=== PATIENT | male | born 1965 | race Caucasian/White ===

== ENCOUNTER 2017-07-09 16:37 | Observation (INO) | payer OTHER ==
[2017-07-09] VITALS (9 sets, daily range): BP systolic 106–164; BP diastolic 50–73; PULSE 63–97; RESP 16–20; TEMP 97.7–98.7; O2SAT 96–98
[~2017-07-09] VITALS: Ht 180.3 cm; Wt 73.0 kg
[~2017-07-09 16:37] MED LIST: NEFA200T PO; PROT40TA PO; ZOLP10TA3 PO
[2017-07-09] MEDS ORDERED: methylPREDNISolone SOD SUCC 125 MG/2 ML VIAL IV PUSH ONE (17:15)
[2017-07-09] MEDS ORDERED: SODIUM CHLORIDE 0.9% FLUSH 10 ML FLUSH IVF PRN (17:15)
--- NOTE | 2017-07-09 17:22 | PD ---
HPI Chief Complaint: Neuro Symptoms/ Deficits Time Seen by Provider: 16:52 Travel History International Travel<30 days: No Contact w/Intl Traveler<30days: No Traveled to known affect area: No History of Present Illness HPI Patient is a 51-year-old male with history of cervical spinal fusion one year ago, presents to emergency room with multiple complaints. Patient reports that he had C4 to C7 spinal fusion on July 24, [address] Juan Alberto Galeano. Patient reports that after surgery, he never recovered and continued to have chronic neck pain. Patient reports that he was taking oxycodone 10 mg 3 times a day, reports that he weaned off oxycodone and started new pain regimen prescribed by another physician. Patient reports that on night, he began taking buprenorphine 1mg bid, gabapentin 100mg bid as well as baclofen 20mg TID. Patient reports that since he began this medication, he has not been feeling right. Patient reports that he has numbness to his right arm and right hand - patient reports that this has been persistent since Friday. Patient reports that he has been feeling dizzy and has the sensation that "I feel drunk or high on drugs." Patient reports that he began to have chest pain , chest pain was located in his left breast and feels like a "pressure sensation " to his chest. Patient denies any shortness of breath or diaphoresis with the symptoms. Patient denies history of hypertension, ACS, arrhythmia, denies cardiac history in the past. Patient reports that he is not feeling right at this time, he is unsure if this medication related . Patient denies drugs or alcohol. PFSH Past Medical History Asthma: Yes Anxiety: Yes Cardiovascular Problems: Yes (STRESSTEST: NEGATIVE 2010?) Gastrointestinal Disorders: Yes Psychiatric: Yes (PANIC ATTACKS) Past Surgical History Other Surgery: Yes (C4-C7 Spinal fusion 07/24/[address] Juan Alberto Gaines) Social History Alcohol Use: Yes (2 DRINKS A DAY) Tobacco Use: No ("IN COLLEGE FOR 6 MONTHS") Substance Use: No Allergies-Medications (Allergen,Severity, Reaction): Coded Allergies: No Known Allergies (Unverified Adverse Reaction, Unknown, 07/09/17) Reported Meds & Prescriptions Reported Meds & Active Scripts Active Reported Baclofen 20 Mg Tab 20 Mg PO TID Gabapentin 100 Mg Cap 100 Mg PO BID [buprenorphine] 2 Mg PO BID Review of Systems General / Constitutional: No: Fever Eyes: No: Visual changes HENT: Positive: Neck Pain, No: Headaches, Vertigo, Lightheadedness Cardiovascular: Positive: Chest Pain or Discomfort, No: Palpitations, Irregular Rhythm, Tachycardia, Diaphoresis Respiratory: No: Shortness of Breath Gastrointestinal: No: Abdominal Pain Genitourinary: No: Dysuria Musculoskeletal: No: Pain Skin: No Rash Neurologic: Positive: Dizziness, Paresthesia, No: Weakness, Syncope, Focal Abnormalities, Headache, Seizures Psychiatric: No: Depression Endocrine: No: Polydipsia Hematologic/Lymphatic: No: Easy Bruising Physical Exam Narrative GENERAL: mild distress SKIN: Focused skin assessment warm/dry. HEAD: Atraumatic. Normocephalic. EYES: Pupils equal and round. No scleral icterus. No injection or drainage. ENT: No nasal bleeding or discharge. Mucous membranes pink and moist. NECK: Trachea midline. No JVD. CARDIOVASCULAR: Regular rate and rhythm. No murmur appreciated. RESPIRATORY: No accessory muscle use. Clear to auscultation. Breath sounds equal bilaterally. GASTROINTESTINAL: Abdomen soft, non-tender, nondistended. Hepatic and splenic margins not palpable. MUSCULOSKELETAL: No obvious deformities. No clubbing. No cyanosis. No edema. NEUROLOGICAL: Awake and alert. No obvious cranial nerve deficits. Motor grossly within normal limits. Normal speech. Patient with a paresthesias to his right hand PSYCHIATRIC: Appropriate mood and affect; insight and judgment normal. Data Data Last Documented VS Vital Signs Date Time Temp Pulse Resp B/P (MAP) Pulse Ox O2 Delivery O2 Flow Rate FiO2 07/09/17 17:50 106/50 (68) 07/09/17 17:29 20 98 Room Air 07/09/17 16:44 98.7 97 Orders Orders Electrocardiogram (07/09/17 17:06) Prothrombin Time / Inr (Pt) (07/09/17 17:06) Act Partial Throm Time (Ptt) (07/09/17 17:06) Complete Blood Count With Diff (07/09/17 17:06) Basic Metabolic Panel (Bmp) (07/09/17 17:06) Creatine Kinase (Cpk) (07/09/17 17:06) Troponin I (07/09/17 17:06) Ct Brain W/O Iv Contrast(Rout) (07/09/17 17:06) Chest, Single Ap (07/09/17 17:06) Ecg Monitoring (07/09/17 17:06) Iv Access Insert/Monitor (07/09/17 17:06) Oximetry (07/09/17 17:06) Blood Glucose (07/09/17 17:06) Sodium Chloride 0.9% Flush (Ns Flush) (07/09/17 17:15) Ct Cerv Spine W/O Contrast (07/09/17 17:06) Nitroglycerin Sl (Nitrostat Sl) (07/09/17 17:15) Methylprednisolone So Succ Inj (Solumedr (07/09/17 17:15) Drug Screen, Random Urine (07/09/17 17:17) Labs Laboratory Tests Test 07/09/17 17:10 White Blood Count 5.0 TH/MM3 Red Blood Count 3.98 MIL/MM3 Hemoglobin 11.7 GM/DL Hematocrit 35.5 % Mean Corpuscular Volume 89.2 FL Mean Corpuscular Hemoglobin 29.4 PG Mean Corpuscular Hemoglobin Concent 33.0 % Red Cell Distribution Width 16.6 % Platelet Count 254 TH/MM3 Mean Platelet Volume 7.3 FL Neutrophils (%) (Auto) 68.2 % Lymphocytes (%) (Auto) 23.2 % Monocytes (%) (Auto) 7.5 % Eosinophils (%) (Auto) 0.7 % Basophils (%) (Auto) 0.4 % Neutrophils # (Auto) 3.4 TH/MM3 Lymphocytes # (Auto) 1.2 TH/MM3 Monocytes # (Auto) 0.4 TH/MM3 Eosinophils # (Auto) 0.0 TH/MM3 Basophils # (Auto) 0.0 TH/MM3 CBC Comment DIFF FINAL Differential Comment Prothrombin Time 10.7 SEC Prothromb Time International Ratio 1.0 RATIO Activated Partial Thromboplast Time 25.0 SEC Blood Urea Nitrogen 7 MG/DL Creatinine 0.91 MG/DL Random Glucose 94 MG/DL Calcium Level 8.7 MG/DL Sodium Level 140 MEQ/L Potassium Level 3.9 MEQ/L Chloride Level 102 MEQ/L Carbon Dioxide Level 27.6 MEQ/L Anion Gap 10 MEQ/L Estimat Glomerular Filtration Rate 89 ML/MIN Total Creatine Kinase 40 U/L Troponin I LESS THAN 0.02 NG/ML MDM Medical Decision Making Medical Screen Exam Complete: Yes Emergency Medical Condition: Yes Medical Record Reviewed: Yes Interpretation(s) EKG at 1730: NSR at 73bpm, qt/qtc: 337/362, no acute st or t wave changes Vital Signs Date Time Temp Pulse Resp B/P (MAP) Pulse Ox O2 Delivery O2 Flow Rate FiO2 07/09/17 16:44 98.7 97 16 164/73 (103) 97 Differential Diagnosis Medication reaction, cervical radiculopathy, ACS, Arrhythmia, electrolyte abnormality, CVA, opiate withdrawal Narrative Course During the course of the patients emergency department visit, the patients history, examination, and differential diagnosis were reviewed with the patient. The patient was placed on a director mortgage with oximetry and frequent blood pressure monitoring. The patient had a 20-gauge IV access obtained and blood work sent for analysis. The patient was initially provided IV fluids, sublingual nitroglycerin for relief of chest pain, as well as Solu-Medrol for possible allergic reaction. The patients laboratory studies were reviewed and remarkable for: CBC & BMP Diagram 07/09/17 17:10 Calcium Level 8.7 Trop: less than 0.02 Radiology studies were reviewed and remarkable for: Last Impressions Head CT 07/09/171705 Signed Impressions: Service Date/Time: Sunday, July 09, 2017 17:17 - CONCLUSION: Minimal left maxillary sinus disease otherwise negative. Edwin Gant MD FACR Chest X-Ray 07/09/171705 Signed Impressions: Service Date/Time: Sunday, July 09, 2017 17:13 - CONCLUSION: No acute disease. Edwin Gant MD FACR Cervical Spine CT 07/09/171705 Signed Impressions: Service Date/Time: Sunday, July 09, 2017 17:17 - CONCLUSION: Anterior cervical fusion as described above. There is no significant spinal stenosis or neural foramina encroachment. Edwin Gant MD FACR Patient with little relief of chest pain after 1 single nitroglycerin. Plan to obs him in the hospital this time. Case reviewed with Dr. Dejesus who accepts pt to service Diagnosis Primary Impression: Chest pain Qualified Codes: R07.9 - Chest pain, unspecified Additional Impressions: Radiculopathy of arm Anemia Qualified Codes: D64.9 - Anemia, unspecified Altered mental status, unspecified Qualified Codes: R41.82 - Altered mental status, unspecified Admitting Information Admitting Physician Requests: Observation Maggie Sinclair DO Jul 09, 2017 17:22
--- NOTE | 2017-07-09 17:28 | RADRPT ---
EXAM DATE/TIME: 07/09/2017 17:13 [facility] COMPARISON: CHEST SINGLE AP, March 15, 2015, 0:57. INDICATIONS : Chest pain for 4 days MEDICAL HISTORY : None. SURGICAL HISTORY : None. ENCOUNTER: Initial ACUITY: 4 - 6 days PAIN SCORE: 5/10 LOCATION: Left chest FINDINGS: A single view of the chest demonstrates the lungs to be symmetrically aerated without evidence of mas s, infiltrate or effusion. The cardiomediastinal contours are unremarkable. Osseous structures are intact. CONCLUSION: No acute disease. Edwin Gant MD FACR on July 09, 2017 at 17:26 Board Certified Radiologist. This report was verified electronically.
[2017-07-09 17:32] LABS: AUTOMATED NEUTROPHIL # 3.4 TH/MM3 (1.8-7.7); BASOPHIL % 0.4 % (0.0-2.0); EOSINOPHIL % 0.7 % (0.0-4.0); HEMATOCRIT 35.5 % (39.0-51.0); HEMO FLAGS DIFF FINAL; LYMPH % 23.2 % (9.0-44.0); LYMPHOCYTE # 1.2 TH/MM3 (1.0-4.8); MEAN CELL VOLUME 89.2 FL (80.0-100.0); MEAN CORPUSCULAR HEMOGLOBIN 29.4 PG (27.0-34.0); MONO % 7.5 % (0.0-8.0); NEUT % 68.2 % (16.0-70.0); PLATELET COUNT 254 TH/MM3 (150-450); RED BLOOD COUNT 3.98 MIL/MM3 (4.50-5.90); RED CELL DISTRIBUTION WIDTH 16.6 % (11.6-17.2)
[2017-07-09 17:39] LABS: CHLORIDE 102 MEQ/L (98-107); POTASSIUM 3.9 MEQ/L (3.5-5.1); SODIUM (NA) 140 MEQ/L (136-145)
[2017-07-09] MEDS: NITROGLYCERIN 0.4 MG SL 25 TABS/BTL SL SCH ×3 (17:40→17:50)
[2017-07-09 17:42] LABS: ANION GAP 10 MEQ/L (5-15); BICARBONATE 27.6 MEQ/L (21.0-32.0); BLOOD UREA NITROGEN 7 MG/DL (7-18)
[2017-07-09 17:45] LABS: GLOMERULAR FILTRATION RATE 89 ML/MIN (>89)
--- NOTE | 2017-07-09 17:45 | RADRPT ---
EXAM DATE/TIME: 07/09/2017 17:17 [facility] COMPARISON: No previous studies available for comparison. INDICATIONS : Altered mental status. Numbness. RADIATION DOSE: 63.11 CTDIvol (mGy) MEDICAL HISTORY : None SURGICAL HISTORY : None. ENCOUNTER: Initial ACUITY: 1 day PAIN SCALE: 0/10 LOCATION: cranial TECHNIQUE: Multiple contiguous axial images were obtained of the head. Using automated exposure control and adj ustment of the mA and/or kV according to patient size, radiation dose was kept as low as reasonably a chievable to obtain optimal diagnostic quality images. DICOM format image data is available electro nically for review and comparison. FINDINGS: CEREBRUM: The ventricles are normal for age. No evidence of midline shift, mass lesion, hemorrhage or acute in farction. No extra-axial fluid collections are seen. POSTERIOR FOSSA: The cerebellum and brainstem are intact. The 4th ventricle is midline. The cerebellopontine angle i s unremarkable. EXTRACRANIAL: The visualized portion of the orbits is intact. SKULL: The calvaria is intact. No evidence of skull fracture. Minimal left maxillary sinus disease. CONCLUSION: Minimal left maxillary sinus disease otherwise negative. Edwin Gant MD FACR on July 09, 2017 at 17:43 Board Certified Radiologist. This report was verified electronically.
--- NOTE | 2017-07-09 17:53 | RADRPT ---
EXAM DATE/TIME: 07/09/2017 17:17 [facility] COMPARISON: No previous studies available for comparison. INDICATIONS : Radiculopathy. Numbness in hands. RADIATION DOSE: 26.37 CTDIvol (mGy) MEDICAL HISTORY : None SURGICAL HISTORY : Fusion, cervical. ENCOUNTER: Initial ACUITY: 4 - 6 days PAIN SCALE: 5/10 LOCATION: neck TECHNIQUE: Volumetric scanning of the cervical spine was performed. Multiplanar reconstructions in the sagittal, coronal and oblique axial planes were performed. Using automated exposure control and adjustment o f the mA and/or kV according to patient size, radiation dose was kept as low as reasonably achievable to obtain optimal diagnostic quality images. DICOM format image data is available electronically f or review and comparison. FINDINGS: VERTEBRAE: Normal vertebral body height. ALIGNMENT: No evidence of subluxation. Status post anterior cervical fusion from C4-C7. C2-C3: The bony spinal canal is normal in size. No evidence of disc bulge or herniation. The neural forami na are bilaterally patent. C3-C4: The bony spinal canal is normal in size. No evidence of disc bulge or herniation. The neural forami na are bilaterally patent. C4-C5: Fused without stenosis. C5-C6: Fused without stenosis. C6-C7: Fused without stenosis. C7-T1: The bony spinal canal is normal in size. No evidence of disc bulge or herniation. The neural forami na are bilaterally patent. CONCLUSION: Anterior cervical fusion as described above. There is no significant spinal stenosis or neural foramina encroachment. Edwin Gant MD FACR on July 09, 2017 at 17:50 Board Certified Radiologist. This report was verified electronically.
[2017-07-09 18:09] LABS: CREATINE KINASE 40 U/L (39-308)
[2017-07-09 18:20] LABS: PROTHROMBIN TIME - PATIENT 10.7 SEC (9.8-11.6)
[2017-07-09] MEDS ORDERED: buprenorphine PO (19:08)
[2017-07-09] MEDS ORDERED: BACL20TA PO (19:08)
[2017-07-09] MEDS ORDERED: GABA100C4 PO ×2 (19:08)
[2017-07-09] MEDS ORDERED: ACETAMINOPHEN 500 MG CPLT PO PRN (19:30)
[2017-07-09] MEDS ORDERED: SODIUM CHLORIDE 0.9% FLUSH 10 ML FLUSH IV FLUSH PRN (19:30)
[2017-07-09] MEDS ORDERED: ASPIRIN 81 MG CHEW TAB CHEW ONE (19:30)
[2017-07-09] MEDS ORDERED: ONDANSETRON HCL 4 MG/2 ML VIAL IV PUSH PRN (19:30)
[2017-07-09] MEDS ORDERED: ZOLP10TA3 PO (19:54)
[2017-07-09] MEDS: HEPARIN SODIUM - SQ 10,000 UNITS/ML VIAL SQ SCH (19:56)
[2017-07-09] MEDS: SODIUM CHLORIDE 0.9% FLUSH 10 ML FLUSH IV FLUSH SCH (21:20)
[2017-07-09 21:48] LABS: CREATINE KINASE 38 U/L (39-308)
[2017-07-09] MEDS: oxyCODONE/ACETAMINOPHEN 5 MG/325 MG TAB PO PRN (22:39)
[2017-07-10] VITALS: BP 130/69; PULSE 72; RESP 18; TEMP 97.5; O2SAT 95
[2017-07-10 00:03] VITALS: PULSE 87
[2017-07-10] MEDS ORDERED: ZOLPIDEM TARTRATE 10 MG TAB PO ONE (00:30)
[2017-07-10 00:48] LABS: CREATINE KINASE 42 U/L (39-308)
[2017-07-10] MEDS: oxyCODONE/ACETAMINOPHEN 5 MG/325 MG TAB PO PRN ×2 (02:39→11:38)
[2017-07-10] MEDS: HEPARIN SODIUM - SQ 10,000 UNITS/ML VIAL SQ SCH ×2 (02:39→11:38)
[2017-07-10 04:00] VITALS: BP 128/71; PULSE 72; RESP 16; TEMP 97.8; O2SAT 95
--- NOTE | 2017-07-10 08:52 | HHI.HP ---
[facility] Service [facility] Primary Care Physician Non-Staff Admission Diagnosis Chest pain, altered mental status Diagnoses: (1) Chest pain (2) Radiculopathy of arm Chief Complaint: Chest pain Right arm radiculopathy Travel History International Travel<30 Days: No Contact w/Intl Traveler <30 Da: No Traveled to Known Affected Are: No History of Present Illness Written by Melissa Deleon, acting as scribe for Dr. Conti on 07/10/17 at 08: 46. Mr. Recinos is a 51-year-old male patient with a known medical history of chronic back and neck pain with history of C4-C7 spinal fusion last year who presented to the ED with multiple complaints. Patient states he has been seeing an outpatient painter hand who has recently been attempting to wean him off Oxycodone and has switch him to Buprenorphine, gabapentin and baclofen. He states that he weaned himself off Oxycodone and started this new medication regimen. Patient states on Friday he woke up in a panic and "just not feeling himself". States he almost felt like he was stoned on drugs with the new changes in medications. Yesterday he states he was awoken from a nap in the afternoon with the same panic feeling with associated dizziness and lightheadedness. He also complaints of new right arm numbness that started at the same time. Denies any tingling or weakness. Patient also noticed chest pain that started yesterday in the middle of his chest with some radiation to the left side, constant and pressure-like in nature, 4/10 at its worse, with associated dyspnea, denies any nausea, vomiting or diaphoresis. Review of Systems Constitutional: DENIES: Fever, Chills Respiratory: DENIES: Cough, Shortness of breath Cardiovascular: COMPLAINS OF: Chest pain, Palpitations Gastrointestinal: DENIES: Abdominal pain, Bloody stools, Constipation, Diarrhea , Nausea, Vomiting Psychiatric: DENIES: Anxiety Except as stated in HPI: all other systems reviewed are Neg Right upper extremity numbness Past Family Social History Past Medical History Chronic back and neck pain Anxiety Past Surgical History C4-C7 spinal fusion 07/24/16 Reported Medications Active Reported Zolpidem (Zolpidem Tartrate) 10 Mg Tab 10 Mg PO HS Baclofen 20 Mg Tab 20 Mg PO TID Gabapentin 100 Mg Cap 100 Mg PO BID [buprenorphine] 2 Mg PO BID Allergies: Coded Allergies: No Known Allergies (Unverified Allergy, Unknown, 07/09/17) Active Ordered Medications Current Medications Medications (Trade) Dose Ordered Sig/Cristin Route Start Time Stop Time Status Last Admin (NS Flush) 2 ml UNSCH PRN IV FLUSH 07/09/17 19:30 (NS Flush) 2 ml BID IV FLUSH 07/09/17 21:00 07/09/17 21:20 (Tylenol) 500 mg Q4H PRN PO 07/09/17 19:30 (Zofran Inj) 4 mg Q6H PRN IV PUSH 07/09/17 19:30 (Heparin Inj) 5,000 units Q8H SQ 07/09/17 20:00 07/10/17 02:39 (Lioresal) 20 mg TID PO 07/10/17 09:00 (Neurontin) 100 mg BID PO 07/10/17 09:00 Future Hold (Ambien) 10 mg HS PO 07/10/17 21:00 (Percocet 5-325 Mg) 1 tab Q4H PRN PO 07/09/17 22:15 07/10/17 02:39 (Pneumovax-23 Inj) 25 mcg ONCE ONCE IM 07/10/17 10:00 07/10/17 10:01 (Flu (Quadrivalent) Vaccine Inj) 0.5 ml ONCE ONCE IM 07/10/17 10:00 07/10/17 10:01 Family History Father has a history of cardiovascular disease with CABG at the age of 6565 years old. Social History Denies any tobacco use. Admits to drinking two alcoholic drinks per night. Denies any illicit drug use. Physical Exam Vital Signs Vital Signs Date Time Temp Pulse Resp B/P (MAP) Pulse Ox O2 Delivery O2 Flow Rate FiO2 07/10/17 04:00 97.8 72 16 128/71 (90) 95 07/10/17 00:03 87 07/10/17 00:00 97.5 72 18 130/69 (89) 95 07/09/17 23:57 18 07/09/17 22:48 97.7 63 17 122/61 (81) 96 07/09/17 21:50 07/09/17 21:25 80 16 124/57 (79) Room Air 07/09/17 20:25 78 16 146/73 (97) Room Air 07/09/17 19:40 97 21 07/09/17 19:25 76 18 119/56 (77) Room Air 07/09/17 17:50 106/50 (68) 07/09/17 17:45 121/57 (78) 07/09/17 17:29 20 98 Room Air 07/09/17 16:44 98.7 97 16 164/73 (103) 97 Physical Exam GENERAL: This is a well-nourished, well-developed male patient, lying in bed in no apparent distress. SKIN: No rashes, ecchymoses or lesions. Warm and dry. HEENT: Atraumatic. Normocephalic. Pupils equal round and reactive. Extraocular motions intact. No scleral icterus. No injection or drainage. Nose without bleeding. Throat without erythema, tonsillar hypertrophy or exudate. Uvula midline. Airway patent. NECK: Trachea midline. No JVD. Supple. CARDIOVASCULAR: Regular rate and rhythm without murmurs, gallops, or rubs. Chest pain reproducible to palpation in midsternal chest. RESPIRATORY: Clear to auscultation. Breath sounds equal bilaterally. No wheezes , rales, or rhonchi. GASTROINTESTINAL: Abdomen soft, non-tender, nondistended. No guarding. MUSCULOSKELETAL: Extremities without clubbing, cyanosis, or edema. No joint tenderness, effusion, or edema noted. NEUROLOGICAL: Awake and alert. Cranial nerves II through XII intact. Motor and sensory grossly within normal limits. Five out of 5 muscle strength in all muscle groups. Normal speech. Laboratory Laboratory Tests Test 07/09/17 17:10 07/09/17 20:05 07/09/17 21:16 07/10/17 00:00 White Blood Count 5.0 Red Blood Count 3.98 Hemoglobin 11.7 Hematocrit 35.5 Mean Corpuscular Volume 89.2 Mean Corpuscular Hemoglobin 29.4 Mean Corpuscular Hemoglobin Concent 33.0 Red Cell Distribution Width 16.6 Platelet Count 254 Mean Platelet Volume 7.3 Neutrophils (%) (Auto) 68.2 Lymphocytes (%) (Auto) 23.2 Monocytes (%) (Auto) 7.5 Eosinophils (%) (Auto) 0.7 Basophils (%) (Auto) 0.4 Neutrophils # (Auto) 3.4 Lymphocytes # (Auto) 1.2 Monocytes # (Auto) 0.4 Eosinophils # (Auto) 0.0 Basophils # (Auto) 0.0 CBC Comment DIFF FINAL Differential Comment Prothrombin Time 10.7 Prothromb Time International Ratio 1.0 Activated Partial Thromboplast Time 25.0 Blood Urea Nitrogen 7 Creatinine 0.91 Random Glucose 94 Calcium Level 8.7 Sodium Level 140 Potassium Level 3.9 Chloride Level 102 Carbon Dioxide Level 27.6 Anion Gap 10 Estimat Glomerular Filtration Rate 89 Total Creatine Kinase 40 38 42 Troponin I LESS THAN 0.02 LESS THAN 0.02 LESS THAN 0.02 Urine Opiates Screen NEG Urine Barbiturates Screen NEG Urine Amphetamines Screen NEG Urine Benzodiazepines Screen NEG Urine Cocaine Screen NEG Urine Cannabinoids Screen NEG Result Diagram: 07/09/17170907/09/171709 Imaging Last Impressions Head CT 07/09/171705 Signed Impressions: Service Date/Time: Sunday, July 09, 2017 17:17 - CONCLUSION: Minimal left maxillary sinus disease otherwise negative. Edwin Gant MD FACR Chest X-Ray 07/09/171705 Signed Impressions: Service Date/Time: Sunday, July 09, 2017 17:13 - CONCLUSION: No acute disease. Edwin Gant MD FACR Cervical Spine CT 07/09/171705 Signed Impressions: Service Date/Time: Sunday, July 09, 2017 17:17 - CONCLUSION: Anterior cervical fusion as described above. There is no significant spinal stenosis or neural foramina encroachment. Edwin Gant MD FACR Caprini VTE Risk Assessment Caprini VTE Risk Assessment: No/Low Risk (score <= 1) Caprini Risk Assessment Model Point Value = 1 Point Value = 2 Point Value = 3 Point Value = 5 Age 41-60 Minor surgery BMI > 25 kg/m2 Swollen legs Varicose veins or History of unexplained or recurrent spontaneous Oral contraceptives or hormone replacement Sepsis (< 1 month) Serious lung disease, including pneumonia (< 1 month) Abnormal pulmonary function Acute myocardial infarction Congestive heart failure (< 1 month) History of inflammatory bowel disease Medical patient at bed rest Age 61-74 Arthroscopic surgery Major open surgery (> 45 min) Laparoscopic surgery (> 45 min) Malignancy Confined to bed (> 72 hours) Immobilizing plaster cast Central venous access Age >= 75 History of VTE Family history of VTE Factor V Leiden Prothrombin [id number] Lupus anticoagulant Anticardiolipin antibodies Elevated serum homocysteine Heparin-induced thrombocytopenia Other congenital or acquired thrombophilia Stroke (< 1 month) Elective arthroplasty Hip, pelvis, or leg fracture Acute spinal cord injury (< 1 month) Prophylaxis Regimen Total Risk Factor Score Risk Level Prophylaxis Regimen 0-1 Low Early ambulation 2 Moderate Order ONE of the following: *Sequential Compression Device (SCD) *Heparin 5000 units SQ BID 3-4 Higher Order ONE of the following medications: *Heparin 5000 units SQ TID *Enoxaparin/Lovenox 40 mg SQ daily (WT < 150 kg, CrCl > 30 mL/min) *Enoxaparin/Lovenox 30 mg SQ daily (WT < 150 kg, CrCl > 10-29 mL/min) *Enoxaparin/Lovenox 30 mg SQ BID (WT < 150 kg, CrCl > 30 mL/min) AND/OR *Sequential Compression Device (SCD) 5 or more Highest Order ONE of the following medications: *Heparin 5000 units SQ TID (Preferred with Epidurals) *Enoxaparin/Lovenox 40 mg SQ daily (WT < 150 kg, CrCl > 30 mL/min) *Enoxaparin/Lovenox 30 mg SQ daily (WT < 150 kg, CrCl > 10-29 mL/min) *Enoxaparin/Lovenox 30 mg SQ BID (WT < 150 kg, CrCl > 30 mL/min) AND *Sequential Compression Device (SCD) Assessment and Plan Assessment and Plan Mr. Recinos is a 51-year-old male patient with a known medical history of chronic back and neck pain with history of C4-C7 spinal fusion last year who presented to the ED with multiple complaints. Atypical chest pain - Serial EKGs and serial troponins ordered for ruling out ACS purposes. Serial troponins are flat. EKG reviewed showing NSR with HR 90, no arrhythmias, No ST changes noted. - Head CT reviewed showing minimal left maxillary sinus disease otherwise unremarkable. Cervical spine CT reviewed showing anterior cervical fusion, no spinal stenosis or neural foramina encroachment. - CXR reviewed showing no acute disease. - Given Nitro SL x 1 in ED which eased the pain. - A nuclear stress test will be performed to rule out any further ischemia. Further treatment plan will depend on results of nuclear images. Continue to follow. - Supportive care. Right arm radiculopathy suspect secondary to chronic neck and back pain. Neck CT with no acute findings. - Control pain, Percocet PO available PRN as needed per pain scale. - Will continue home medication regimen with the exception of Gabapentin. - Encourage outpatient follow up with pain management. DVT Prophylaxis: SCDs. Patient is stable at this time and agreeable to the plan. This note was transcribed by scribe [Adrienne Torres]. I, Dr. Cory Conti personally performed the history, physical exam, and medical decision making; and confirmed the accuracy of the information in the transcribed note. Authenticated by Dr. Cory Conti on 07/10/17 at 0850 Nuclear stress test images and report reviewed showing unremarkable scan and no signs of ischemia. Patient updated about test results and chest pain and right arm radiculopathy resolved. Patient stable and understanding of results. Has an appointment with his pain management doctor tomorrow morning. Also encouraged to make an appointment with his PCP when he returns back from out of town next week. Patient agreeable to plan. Problem Qualifiers (1) Chest pain: Qualified Codes: R07.9 - Chest pain, unspecified Melissa Deleon Jul 10, 2017 08:52 Cory Conti MD Jul 10, 2017 11:20
[2017-07-10 09:00] VITALS: BP 121/83; PULSE 77; RESP 16; TEMP 97.6; O2SAT 98
[2017-07-10] MEDS ORDERED: GABAPENTIN 100 MG CAP PO SCH (09:00)
[2017-07-10] MEDS: BACLOFEN 20 MG TAB PO SCH ×2 (09:10→13:00)
[2017-07-10] MEDS: SODIUM CHLORIDE 0.9% FLUSH 10 ML FLUSH IV FLUSH SCH (09:10)
[2017-07-10] MEDS ORDERED: PNEUMOCOCCAL POLYVALENT INJ 25 MCG/0.5 ML SYR IM ONE (10:00)
[2017-07-10] MEDS ORDERED: INFLUENZA VIRUS VACCINE (QUADRIVALENT) 0.5 ML SYR IM ONE (10:00)
[2017-07-10] MEDS ORDERED: BUPR2SUB SL (11:23)
[2017-07-10 11:52] VITALS: PULSE 77
[2017-07-10 12:00] VITALS: BP 146/96; PULSE 105; RESP 16; TEMP 98.7; O2SAT 99
[2017-07-10] MEDS ORDERED: PANT40TA3 PO (12:02)
--- NOTE | 2017-07-10 12:07 | RADRPT ---
EXAM DATE/TIME: 07/10/2017 10:19 [place] COMPARISON: No previous studies available for comparison. INDICATIONS : Left chest pain. Angina. DOSE: 27 mCi Tc99m Myoview at stress. 8.8 mCi Tc99m Myoview at rest. 0.4 mg Lexiscan STRESS SYMPTOMS: Chest pain, nausea and facial flush. EJECTION FRACTION: 59% MEDICAL HISTORY : Inflammatory bowel disease. Gastroesophageal reflux disease. Asthma. SURGICAL HISTORY : Fusion, cervical. ENCOUNTER: Initial ACUITY: 4 - 6 days PAIN SCALE: 6/10 LOCATION: Left chest TECHNIQUE: The patient underwent pharmacologic stress with infusion of prescribed dose. Continuous ECG tracing was monitored during stress. Gated SPECT imaging was performed after stress and conventional SPECT i maging was performed at rest. The examination was performed on a SPECT/CT scanner, both attenuation and non-corrected datasets were reviewed. FINDINGS: DISTRIBUTION: The maximum perfused segment at stress is in the lateral wall. PERFUSION STUDY: The pattern of perfusion at stress is within normal limits. GATED STUDY: There is intact wall motion and thickening without hypokinetic or dyskinetic segments. CONCLUSION: Unremarkable myocardial perfusion examination. RISK CATEGORY: Low Torey Noyola MD on July 10, 2017 at 12:05 Board Certified Radiologist. This report was verified electronically.
--- NOTE | 2017-07-10 12:24 | HHI.DCPOC ---
Discharge Care Plan Diagnosis: (1) Chest pain (2) Radiculopathy of arm Your Health Problems Are: Anxiety Chest Pain Chronic Pain Goals to Promote Your Health * To prevent worsening of your condition and complications * To maintain your health at the optimal level Directions to Meet Your Goals Take your medications as prescribed Follow your dietary instruction Follow activity as directed Keep your appointments as scheduled Take your immunizations and boosters as scheduled If your symptoms worsen call your PCP, if no PCP go to Urgent Care Center or Emergency Room Smoking is Dangerous to Your Health. Avoid second hand smoke Call the 24-hour hour crisis hotline for domestic abuse at Melissa Deleon Jul 10, 2017 12:24
[2017-07-10] MEDS ORDERED: PANTOPRAZOLE SOD 40 MG DELAYED RELEASE TAB PO SCH (13:00)
--- NOTE | 2017-07-10 13:40 | TR ---
Date Performed: 07/10/2017 Time Performed: 10:44:08 DOCTOR: Abhilash Pat DRUG LIST: CLINICAL HISTORY: REASON FOR TEST: Chest pain REASON FOR ENDING: OBSERVATION: CONCLUSION: Lexiscan stress test was performed under standard four minute protocol. Radionuclid e was injected one minute prior to ending the test. No electrocardiographic abormalities were present to suggest ischemia. Nuclear imaging and interpretation are pending. COMMENTS:
--- NOTE | 2017-07-10 14:28 | EKG ---
Date Performed: 07/09/2017 Time Performed: 23:39:06 PTAGE: 51 years EKG: Sinus rhythm POSSIBLE LEFT ATRIAL ENLARGEMENT Poor R wave progression ABNORMAL ECG PREVIOUS TRACING : 07/09/2017 19.48 Compared to previous tracing ,Poor R wave progression is ne w. DOCTOR: Abhilash Pat Interpretating Date/Time 07/10/2017 14:27:09
--- NOTE | 2017-07-10 14:41 | EKG ---
Date Performed: 07/09/2017 Time Performed: 19:48:48 PTAGE: 51 years EKG: Sinus rhythm NORMAL ECG PREVIOUS TRACING : 07/09/2017 17.30 Since previous tracing, no significant change noted DOCTOR: Abhilash Pat Interpretating Date/Time 07/10/2017 14:40:55
--- NOTE | 2017-07-10 14:42 | EKG ---
Date Performed: 07/09/2017 Time Performed: 17:30:26 PTAGE: 51 years EKG: Sinus rhythm NORMAL ECG PREVIOUS TRACING : 03/15/2015 00.19 Since previous tracing, no significant change noted DOCTOR: Abhilash Pat Interpretating Date/Time 07/10/2017 14:41:56
[2017-07-10] MEDS ORDERED: REGADENOSON INJ 0.4 MG/5 ML SYR IV ONE (19:30)
[2017-07-10] MEDS ORDERED: ZOLPIDEM TARTRATE 10 MG TAB PO SCH (21:00)
== END 2017-07-10 14:49 | disposition home or self-care (01) ==
LOC: PHED 16:37 → PHEDA 19:29 → PH3B 21:56
PROVIDERS: ADMIT Family Medicine; ATTEND Family Medicine
DX: R07.89 Other chest pain (principal); M54.10 Radiculopathy, site unspecified; R41.82 Altered mental status, unspecified; R42 Dizziness and giddiness; R94.31 Abnormal electrocardiogram [ECG] [EKG]; D64.9 Anemia, unspecified; J45.909 Unspecified asthma, uncomplicated; M54.9 Dorsalgia, unspecified; M54.2 Cervicalgia; G89.29 Other chronic pain; F41.0 Panic disorder [episodic paroxysmal anxiety]; Z98.1 Arthrodesis status; Z23 Encounter for immunization
CPT/HCPCS: 70450; 71010; 72125; 78452; 80048; 80307; 82550; 84484; 85025; 85610; 85730; 90471; 90686; 90732; 93005; 93017; 96372; 96374; 99285; A9502; G0378; J1644; J2785; J2930; G0008; G0009; Q2038